=== PATIENT | male | born 1965 | race Caucasian/White ===

== ENCOUNTER → 2020-01-16 10:30 | Outpatient (CLI) | payer OTHER, SELFPAY ==
[2020-01-16 13:31] LABS: Coronavirus 19 IgG Antibody Negative (Negative); Coronavirus 19 IgM Antibody Negative (Negative)
== END ==
PROVIDERS: PCP Family Medicine; Visit Provider Nurse Practitioner
DX: Z03.818 Encounter for observation for suspected exposure to other biological agents ruled out (principal)
CPT/HCPCS: 36415; 86328